=== PATIENT | male | born 1970 | race Caucasian/White ===

== ENCOUNTER 2017-05-12 08:11 | Emergency (ER) | payer OTHER ==
[~2017-05-12] VITALS: Ht 190.5 cm; Wt 132.0 kg
[~2017-05-12 08:11] MED LIST: ABILIFY10 MG PO; CYCLOBENZAPRINE10 MG PO; DILAUDID2 MG PO; INDOCIN25 MG PO; LIDODERM 5% P1 PATCH TD; NAPROSYN500 MG PO; OXYCODONE HCL15 MG PO; OXYCONTIN60 MG PO; PAROXETINE HCL20 MG PO; PROTONIX40 MG PO; REGLAN10 MG PO; SEROQUEL50 MG PO; TORADOL10 MG PO; VALIUM5 MG PO; effexor
[2017-05-12 09:04] LABS: MCHC 33.5 G/DL (30.0-36.0); MCV 86.6 FL (86-99); MEAN PLAT.VOLUME 10.1 uM^3 (9.0-12.4); PLATELET COUNT 216 K/uL (156-360); RBC DIS.WIDTH-CV 12.7 % (11.8-14.6); RED BLOOD COUNT 5.66 M/uL (4.00-5.50); WHITE BLOOD COUNT 8.2 K/uL (4.1-10.2)
[2017-05-12 09:12] LABS: CHLORIDE 99 mEq/L (99-109); POTASSIUM 4.5 mEq/L (3.7-5.4); SODIUM 137 mEq/L (136-147)
[2017-05-12 09:14] LABS: GLUCOSE 106 mg/dL (70-99)
[2017-05-12 09:15] LABS: ANION GAP 9 MEQ/L (2-14)
[2017-05-12 09:18] LABS: GFR ESTIMATE (CALCULATED) > 59 mL/min/ (58.99-99999)
[2017-05-12 09:19] LABS: UREA NITROGEN (BUN) 8 mg/dL (9-23)
[2017-05-12 10:08] LABS: TOTAL BILIRUBIN 0.5 mg/dL (0.0-1.0)
[2017-05-12 10:09] LABS: ALKALINE PHOSPHATASE 81 IU/L (3-129)
[2017-05-12 10:12] LABS: DIRECT BILIRUBIN 0.2 mg/dL (0.0-0.3)
[2017-05-12 10:13] LABS: LIPASE 5 U/L (1.0-51.0)
[2017-05-12 11:26] LABS: ADD MIUA? NO; BILIRUBIN NEGATIVE; BLOOD NEGATIVE; COLOR STRAW ((YELLOW)); GLUCOSE (STRIP) NEGATIVE; KETONES NEGATIVE; LEUKOCYTES NEGATIVE; NITRITE NEGATIVE; PROTEIN (STRIP) NEGATIVE; SPECIFIC GRAVITY 1.034 (1.000-1.030); UCUL ADDED? NO; UROBILINOGEN 0.2 MG/DL (0.2-1.0)
[2017-05-12] MEDS ORDERED: ZOFRAN4 MG PO (12:05)
[2017-05-12 12:36] VITALS: BP 132/96
== END 2017-05-12 12:37 | disposition home or self-care (01) ==
LOC: EME 08:11
DX: R11.10 Vomiting, unspecified (principal); I10 Essential (primary) hypertension; Z98.890 Other specified postprocedural states; Z87.442 Personal history of urinary calculi; F17.200 Nicotine dependence, unspecified, uncomplicated
CPT/HCPCS: 74177; 80048; 80076; 81003; 83690; 85027; 99281; 99285; J2405; J7030

== ENCOUNTER 2017-05-29 17:08 | Emergency (ER) | payer OTHER ==
[~2017-05-29] VITALS: Ht 190.5 cm; Wt 131.9 kg
[~2017-05-29 17:08] MED LIST changes: +ZOFRAN4 MG PO
[2017-05-29] MEDS ORDERED: AMLODIPINE BESYL5 MG PO (18:43)
[2017-05-29] MEDS ORDERED: ATARAX,VISTARIL25 MG PO (18:43)
[2017-05-29] MEDS ORDERED: FIORICET 50-301 EAC1 PO (18:43)
[2017-05-29 18:55] VITALS: BP 143/91
== END 2017-05-29 18:57 | disposition home or self-care (01) ==
LOC: EME 17:08
DX: G44.209 Tension-type headache, unspecified, not intractable (principal); F41.9 Anxiety disorder, unspecified; F43.0 Acute stress reaction; R03.0 Elevated blood-pressure reading, without diagnosis of hypertension; F17.200 Nicotine dependence, unspecified, uncomplicated
CPT/HCPCS: 99281; 99284

== ENCOUNTER 2017-05-30 11:37 | Emergency (ER) | payer OTHER ==
[~2017-05-30] VITALS: Ht 190.5 cm; Wt 132.5 kg
[~2017-05-30 11:37] MED LIST changes: +AMLODIPINE BESYL5 MG PO; +ATARAX,VISTARIL25 MG PO; +FIORICET 50-301 EAC1 PO
[2017-05-30 14:22] VITALS: BP 118/59
== END 2017-05-30 14:25 | disposition home or self-care (01) ==
LOC: EME 11:37
DX: F32.9 Major depressive disorder, single episode, unspecified (principal); I10 Essential (primary) hypertension; G89.29 Other chronic pain; Z87.442 Personal history of urinary calculi; F17.200 Nicotine dependence, unspecified, uncomplicated
CPT/HCPCS: 90839; 99281; 99284; G0480

== ENCOUNTER 2017-08-25 10:47 | Emergency (ER) | payer OTHER ==
[~2017-08-25] VITALS: Ht 190.5 cm; Wt 137.3 kg
[2017-08-25 11:10] LABS: APPEARANCE CLEAR ((CLEAR)); BILIRUBIN NEGATIVE; BLOOD MODERATE; COLOR YELLOW ((YELLOW)); GLUCOSE (STRIP) NEGATIVE; KETONES NEGATIVE; LEUKOCYTES NEGATIVE; NITRITE NEGATIVE; PROTEIN (STRIP) NEGATIVE; SPECIFIC GRAVITY 1.018 (1.000-1.030); UROBILINOGEN 0.2 MG/DL (0.2-1.0)
[2017-08-25 11:14] LABS: BACTERIA NONE SEEN /HPF; EPITHELIAL CELLS NONE SEEN /HPF; MUCUS TRACE /LPF; RED BLOOD CELLS 30-40 /HPF (0-5); WHITE BLOOD CELLS 0-5 /HPF (0-5)
[2017-08-25 11:46] LABS: HEMATOCRIT 46.9 % (38.0-50.0); MCH 29.5 PG (29.0-34.0); MCHC 34.1 G/DL (30.0-36.0); MCV 86.4 FL (86-99); PLATELET COUNT 229 K/uL (156-360); RBC DIS.WIDTH-CV 12.7 % (11.8-14.6); RBC DIS.WIDTH-SD 39.7 % (39-53); RED BLOOD COUNT 5.43 M/uL (4.00-5.50); WHITE BLOOD COUNT 10.6 K/uL (4.1-10.2)
[2017-08-25 11:52] LABS: CHLORIDE 100 mEq/L (99-109); SODIUM 136 mEq/L (136-147)
[2017-08-25 11:53] LABS: GLUCOSE 112 mg/dL (70-99)
[2017-08-25 11:57] LABS: CREATININE 1.6 mg/dL (0.6-1.3); GFR ESTIMATE (CALCULATED) 49 mL/min/ (58.99-99999)
[2017-08-25] MEDS ORDERED: ZUBSOLV 5.7-1.1 EACH SL (11:57)
[2017-08-25 11:58] LABS: UREA NITROGEN (BUN) 13 mg/dL (9-23)
[2017-08-25] MEDS ORDERED: DEXTROAMP-AMPHE10 MG PO (11:58)
[2017-08-25 13:21] LABS: TOTAL PROTEIN 6.8 g/dL (6.4-8.3)
[2017-08-25 13:23] LABS: TOTAL BILIRUBIN 0.8 mg/dL (0.0-1.0)
[2017-08-25 13:24] LABS: ALKALINE PHOSPHATASE 71 IU/L (3-129)
[2017-08-25 13:26] LABS: AST (GOT) 25 IU/L (2-34)
[2017-08-25 13:27] LABS: ALT (GPT) 21 IU/L (3-49); DIRECT BILIRUBIN 0.3 mg/dL (0.0-0.3)
[2017-08-25] MEDS ORDERED: PERCOCET 5/31 TABLET PO (13:56)
[2017-08-25] MEDS ORDERED: ZOFRAN ODT4 MG PO (13:56)
[2017-08-25] MEDS ORDERED: FLOMAX0.4 MG PO (13:56)
[2017-08-25 14:35] VITALS: BP 162/90
== END 2017-08-25 14:40 | disposition home or self-care (01) ==
LOC: EME 10:47
DX: N13.2 Hydronephrosis with renal and ureteral calculous obstruction (principal); Z87.442 Personal history of urinary calculi; I10 Essential (primary) hypertension; G89.29 Other chronic pain; F17.200 Nicotine dependence, unspecified, uncomplicated
CPT/HCPCS: 74176; 80048; 80076; 81003; 85027; 99281; 99284; J1885; J2405; J7030